=== PATIENT | female | born 1930 | race Caucasian/White ===

== ENCOUNTER 2017-12-21 08:27 | Day surgery (SDC) | payer MEDICARE, OTHER ==
[~2017-12-21] VITALS: Ht 147.3 cm; Wt 74.5 kg
[2017-12-21] VITALS (9 sets, daily range): BP systolic 109–139; BP diastolic 48–90; PULSE 61–76; TEMP 97.1–98.3
[2017-12-21 09:00] LABS: CALCIUM 9.5 mg/dL (8.4-10.2); CREATININE, serum 0.74 mg/dL (0.52-1.25); HEMATOCRIT 40.9 % (37.0-47.0); HEMOGLOBIN 13.8 g/dl (12.5-16.0); MEAN CELL VOLUME 99 fl (80.0-100.0); MEAN CORPUSCULAR HEMOGLOBIN 33 pg (27.0-31.0); MEAN CORPUSCULAR HGB CONC 34 g/dl (33.0-37.0); MEAN PLATELET VOLUME 8.8 fl (7.4-10.4); PLATELET COUNT 215 K/mm3 (130-400); POTASSIUM 3.6 mmol/L (3.4-5.0); RED BLOOD COUNT 4.14 M/mm3 (4.10-5.30); REDCELL DISTRIBUTION WIDTH-CV 13.5 % (11.5-14.5)
[2017-12-21 09:10] LABS: INR 1.1 (0.8-3.0); PROTHROMBIN TIME 12.9 SECONDS (9.7-12.8)
[2017-12-21] MEDS ORDERED: ZOLOFT 25MG25 MG PO (09:17)
[2017-12-21] MEDS ORDERED: MYRBETR50MG PO (09:18)
[2017-12-21] MEDS ORDERED: ASPIRIN 81M81 MG/TA2 PO (09:18)
[2017-12-21] MEDS ORDERED: ZOCOR 20MG20 MG PO (09:19)
[2017-12-21] MEDS ORDERED: OSCAL 500 TAB500 MG PO (09:25)
[2017-12-21] MEDS ORDERED: VITAMIN D32000 I1 PO (09:26)
[2017-12-21] MEDS ORDERED: PRILOTC PO (09:27)
[2017-12-21] MEDS ORDERED: PLENDIL 2.5MG2.5 MG PO (09:27)
[2017-12-21] MEDS ORDERED: SYNTHROID 0.0.025 MG PO (09:28)
[2017-12-21] MEDS ORDERED: MIRALAX PA17 GM/Dose PO (09:29)
[2017-12-21] MEDS ORDERED: TYLENOL 325MG325 MG PO (09:30)
[2017-12-21] MEDS ORDERED: ZADITOR 5 ML5 ML OP (09:30)
[2017-12-21] MEDS ORDERED: EPA FISH OIL1 SGL PO (09:30)
[2017-12-22 04:04] VITALS: BP 137/63; PULSE 60; TEMP 98
[2017-12-22 06:33] LABS: HEMATOCRIT 38.5 % (37.0-47.0); HEMOGLOBIN 13.1 g/dl (12.5-16.0); MEAN CELL VOLUME 99 fl (80.0-100.0); MEAN CORPUSCULAR HEMOGLOBIN 34 pg (27.0-31.0); MEAN CORPUSCULAR HGB CONC 34 g/dl (33.0-37.0); MEAN PLATELET VOLUME 9.1 fl (7.4-10.4); PLATELET COUNT 189 K/mm3 (130-400); RED BLOOD COUNT 3.91 M/mm3 (4.10-5.30); REDCELL DISTRIBUTION WIDTH-CV 13.2 % (11.5-14.5)
[2017-12-22 08:26] VITALS: BP 122/68; PULSE 68; TEMP 97.7
[2017-12-22] MEDS ORDERED: CEPHALEXIN500 M1 PO (10:00)
[2017-12-22 11:42] VITALS: BP 147/75; PULSE 65; TEMP 97.8
== END 2017-12-22 14:08 | disposition home or self-care (01) ==
LOC: COL.CAR 08:27 → MEDICAL 14:14 → COL.CAR 12-22 14:08
PROVIDERS: Internal Medicine Cardiovascular Disease
DX: I49.5 Sick sinus syndrome (principal); I44.1 Atrioventricular block, second degree; I45.10 Unspecified right bundle-branch block; G47.33 Obstructive sleep apnea (adult) (pediatric); E78.2 Mixed hyperlipidemia; R06.02 Shortness of breath
CPT/HCPCS: OP; J0690; J2250; J3010; J7030